=== PATIENT | male | born 1970 | race Hispanic/Latino ===

== ENCOUNTER 2024-03-21 19:07 | Emergency (ER) | payer OTHER ==
[2024-03-21] MEDS ORDERED: Acetaminophen 325 MG TAB ONE (20:26)
== END 2024-03-21 20:44 | disposition home or self-care (01) ==
LOC: ERS 19:07
DX: E11.621 Type 2 diabetes mellitus with foot ulcer (principal); L89.893 Pressure ulcer of other site, stage 3; I10 Essential (primary) hypertension